=== PATIENT | male | born 1985 | race American Indian/Alaskan Native ===

== ENCOUNTER 2022-01-20 02:41 | Emergency (ER) | payer SELFPAY ==
[2022-01-20 02:50] VITALS: BP 110/70
--- NOTE | 2022-01-20 10:50 | Emergency Department Report ---
ED General Adult HPI - General Chief complaint: Neck Pain/Injury Stated complaint: MASS TO NECK Source: EMS Mode of arrival: Ambulatory Limitations: No Limitations - History of Present Illness Initial comments: 36-year-old male with no significant past medical history reports to the ER with left sided jaw mass. Patient reports mass has been there about 20 days and reports pain with swallowing, and a hard time eating food due to swelling. Patient unaware of how abscess to neck started. Patient denies fever, chills, dizziness. Reports no prior drainage to that particular area has had prior abscesses to jaw. No other acute symptoms reported. - Related Data Previous Rx's Medication Instructions Recorded Last Taken Type Ibuprofen [Motrin] 800 mg PO Q8HR PRN 7 Days #21 01/20/22 Unknown Rx tablet Sulfamethoxazole/Trimethoprim 1 each PO BID 10 Days #20 tab 01/20/22 Unknown Rx [Bactrim DS TAB] Allergies Allergy/AdvReac Type Severity Reaction Status Date / Time No Known Allergies Allergy Verified 01/20/22 10:55 ED Review of Systems ROS: Stated complaint: MASS TO NECK Other details as noted in HPI Constitutional: denies: chills, fever Eyes: denies: eye pain, eye discharge, vision change ENT: denies: ear pain, throat pain Respiratory: denies: cough, shortness of breath, wheezing Cardiovascular: denies: chest pain, palpitations Endocrine: no symptoms reported Gastrointestinal: denies: abdominal pain, nausea, diarrhea Genitourinary: denies: urgency, dysuria Musculoskeletal: denies: back pain, joint swelling, arthralgia Skin: other (Abscess to left jaw). denies: rash, lesions Neurological: denies: headache, weakness, paresthesias Psychiatric: denies: anxiety, depression Hematological/Lymphatic: denies: easy bleeding, easy bruising ED Past Medical Hx - Past Medical History Previous Medical History?: No - Surgical History Past Surgical History?: No - Social History Smoking Status: Unknown if ever smoked - Medications Home Medications: Home Medications Medication Instructions Recorded Confirmed Last Taken Type Ibuprofen [Motrin] 800 mg PO Q8HR PRN 7 Days #21 01/20/22 Unknown Rx tablet Sulfamethoxazole/Trimethoprim 1 each PO BID 10 Days #20 tab 01/20/22 Unknown Rx [Bactrim DS TAB] ED Physical Exam - General Limitations: No Limitations General appearance: alert, in no apparent distress - Head Head exam: Present: atraumatic, normocephalic - Eye Eye exam: Present: normal appearance - ENT ENT exam: Present: mucous membranes moist - Expanded ENT Exam Expanded Mouth exam: Present: other (Left-sided jaw abscess, thrush to the tongue) Teeth exam: Present: dental caries, other (Severe poor hygiene) - Neck Neck exam: Present: normal inspection - Respiratory Respiratory exam: Present: normal lung sounds bilaterally. Absent: respiratory distress - Cardiovascular Cardiovascular Exam: Present: regular rate, normal rhythm. Absent: systolic murmur, diastolic murmur, rubs, gallop - GI/Abdominal GI/Abdominal exam: Present: soft, normal bowel sounds - Rectal Rectal exam: Present: deferred - Extremities Exam Extremities exam: Present: normal inspection - Back Exam Back exam: Present: normal inspection - Neurological Exam Neurological exam: Present: alert, oriented X3 - Psychiatric Psychiatric exam: Present: normal affect, normal mood - Skin Skin exam: Present: warm, dry, intact, normal color. Absent: rash ED Course Vital Signs 01/20/22 01/20/22 02:46 16:08 Temperature 98.5 F Pulse Rate 88 88 Respiratory 18 18 Rate Blood Pressure 110/70 Blood Pressure 110/70 [Right] O2 Sat by Pulse 99 99 Oximetry - I & D Jaw Type of Procedure: Complex Site: Left side of jaw Blade Size: 11 I & D Procedure: betadine prep, sterile drapes applied, sterile dressing applied Progress: Abscess was drained to the left side of general using sterile technique. About 2 cc of lidocaine without epi was used. Drainage was successful. 1/4 iodoform was used to pack abscess. Patient tolerated procedure well. ED Medical Decision Making - Lab Data Result diagrams: 01/20/22 11:16 01/20/22 11:16 - Radiology Data [facility] [address] [place] [address] Cat Scan Report Signed Patient: PARTH LIZARRAGA MR#: [id number] : 1985 Acct:[id number] Age/Sex: 36 / M ADM Date: 01/20/22 Loc: ED Attending Dr: Ordering Physician: MARIAH AGUIRRE NP Date of Service: 01/20/22 Procedure(s): CT neck w con Accession Number(s): [id number] cc: MARIAH AGUIRRE NP CT NECK 01/20/2022 HISTORY: neck abscess. FINDINGS: Contrast enhanced CT images of the soft tissues of the neck were obtained. There is a subcutaneous mass/fluid collection in the left submandibular region. This appears to be located between the skin and platysma muscle, it from the floor of mouth. This irregular fluid attenuation structure measures 5.0 x 2.4 x 3.4 cm. There is surrounding inflammatory change, and the appearance is compatible with the provided history of abscess. There is some associated reactive adenopathy in the submandibular and jugulodigastric regions bilaterally. The submandibular glands are unremarkable. Parotid glands are unremarkable. IMPRESSION: Prominent left submandibular subcutaneous fluid collection with irregular margins. The appearance is consistent with abscess, associated with reactive adenopathy. All CT scans at this location are performed using dose reduction to ALARA by means of automated exposure control. Signer Name: Chato Johnson MD Signed: 01/20/2022 1:25 PM Workstation Name: [id number] Transcribed By: FELICITY Dictated By: Chato Johnson MD Electronically Authenticated By: Chato Johnson MD Signed Date/Time: 01/20/221324 DD/ 21 TD/TT: - Medical Decision Making 36-year-old male with no significant past medical history reports to the ER with left-sided jaw abscess, that is been present for about 20 days. Abscess noted to left side of jaw, severe poor hygiene to mouth, thrush like appearance to tongue. Will collect labsBMP, CBC, ImagingCT soft neck. IV Rocephin 1 g ordered, morphine, a liter of fluids. Once CT and labs are back we will evaluate imaging to decide if I&D is necessary versus consult with ENT. CT positive for abscess to the left jaw. WBC11.4 no other acute process noted in CBC. CMPnegative with no acute process noted. I&D performed and successful. Patient to be sent home with oral antibiotics and pain medicine. Patient informed to follow-up in the ER within 1 to 2 days for reevaluation of abscess and removal of packing. Patient agrees with plan of care and verbalized understanding. Vital Signs 01/20/22 01/20/22 02:46 16:08 Temperature 98.5 F Pulse Rate 88 88 Respiratory 18 18 Rate Blood Pressure 110/70 Blood Pressure 110/70 [Right] O2 Sat by Pulse 99 99 Oximetry Labs 01/20/22 01/20/22 11:16 11:16 WBC 11.4 H RBC 4.41 Hgb 14.0 Hct 42.5 MCV 96 H MCH 32 MCHC 33 RDW 13.8 Plt Count 246 Lymph % (Auto) 12.8 L Archer % (Auto) 10.3 H Eos % (Auto) 1.5 Baso % (Auto) 0.5 Lymph # (Auto) 1.5 Archer # (Auto) 1.2 H Eos # (Auto) 0.2 Baso # (Auto) 0.1 Seg Neutrophils % 74.9 H Seg Neutrophils # 8.6 H Sodium 137 Potassium 4.0 Chloride 97.3 L Carbon Dioxide 23 Anion Gap 21 BUN 4 L Creatinine 0.6 L Estimated GFR > 60 BUN/Creatinine Ratio 7 Glucose 90 Calcium 9.7 Critical care attestation.: If time is entered above; I have spent that time in minutes in the direct care of this critically ill patient, excluding procedure time. ED Disposition Clinical Impression: Abscess of jaw, left Disposition: 01 HOME / SELF CARE / HOMELESS Is pt being admited?: No Does the pt Need Aspirin: No Condition: Stable Instructions: Skin Abscess, Incision and Drainage, Care After Additional Instructions: If swelling gets worse new onset of fever, unable to eat drink or swallow please report back to the ER for further evaluation. Please take all antibiotics as directed for total 10 days. Please follow back up in the ER in 1 to 2 days for evaluation of wound and to have packing removed. Prescriptions: Sulfamethoxazole/Trimethoprim [Bactrim DS TAB] 1 each PO BID 10 Days #20 tab Ibuprofen [Motrin] 800 mg PO Q8HR PRN 7 Days #21 tablet PRN Reason: Pain, Moderate (4-6) Referrals: DEANNA JACK MD [Primary Care Provider] - 3-5 Days Time of Disposition: 15:28
[2022-01-20] MEDS ORDERED: MORPHINE 4 MG/1 ML INJ IV SCH (11:00)
[2022-01-20] MEDS ORDERED: SODIUM CHLORIDE 0.9% 1000 ML 1,000 ML IV ONE (11:30)
[2022-01-20 12:04] LABS: Basophils # (Auto) 0.1 K/mm3 (0.0-0.1); Basophils % (Auto) 0.5 % (0.0-1.8); Eosinophils # (Auto) 0.2 K/mm3 (0.0-0.4); Eosinophils % (Auto) 1.5 % (0.0-4.3); Hematocrit 42.5 % (35.5-45.6); Lymphocytes # (Auto) 1.5 K/mm3 (1.2-5.4); Lymphocytes % (Auto) 12.8 % (13.4-35.0); Mean Corpuscular HGB Conc 33 % (32-34); Mean Corpuscular Volume 96 fl (84-94); Monocytes # (Auto) 1.2 K/mm3 (0.0-0.8); Monocytes % (Auto) 10.3 % (0.0-7.3); Platelet Count 246 K/mm3 (140-440); Red Blood Count 4.41 M/mm3 (3.65-5.03); Red Cell Distribution Width 13.8 % (13.2-15.2)
[2022-01-20 12:09] LABS: Blood Urea Nitrogen 4 mg/dL (9-20); Calcium 9.7 mg/dL (8.4-10.2); Hemolysis Index 6
[2022-01-20] MEDS ORDERED: cefTRIAXone/NS 1 GM/50 ML 1 GM/50 ML BAG IV ONE (12:19)
[2022-01-20 12:23] LABS: BUN/Creatinine Ratio 7
--- NOTE | 2022-01-20 13:30 | Cat Scan Report ---
CT NECK 01/20/2022 HISTORY: neck abscess. FINDINGS: Contrast enhanced CT images of the soft tissues of the neck were obtained. There is a subcutaneous mass/fluid collection in the left submandibular region. This appears to be lo cated between the skin and platysma muscle, it from the floor of mouth. This irregular flu id attenuation structure measures 5.0 x 2.4 x 3.4 cm. There is surrounding inflammatory change, and t he appearance is compatible with the provided history of abscess. There is some associated reactive adenopathy in the submandibular and jugulodigastric regions bilater ally. The submandibular glands are unremarkable. Parotid glands are unremarkable. IMPRESSION: Prominent left submandibular subcutaneous fluid collection with irregular margins. The ap pearance is consistent with abscess, associated with reactive adenopathy. All CT scans at this location are performed using dose reduction to ALARA by means of automated expos ure control. Signer Name: Chato Johnson MD Signed: 01/20/2022 1:25 PM Workstation Name: [id number]
[2022-01-20] MEDS ORDERED: LIDOCAINE 1%/EPINEPHRINE 1:100,000 VIAL (20 ML) INFILTRATI ONE (13:39)
[2022-01-20] MEDS ORDERED: LIDOCAINE (1%) 10 MG/1 ML VIAL 20 ML MDV INFILTRATI ONE (14:27)
[2022-01-20] MEDS ORDERED: HYDROcodone/ACETAMINOPHEN 5-325 MG TAB PO ONE (15:28)
== END 2022-01-20 16:08 | disposition home or self-care (01) ==
LOC: ED 02:41
DX: M27.2 Inflammatory conditions of jaws (principal)
CPT/HCPCS: 36415; 41800; 70491; 80048; 85025; 96361; 96365; 96375; 99284; J0696; J2270; J7030; Q9967

== ENCOUNTER 2022-01-21 10:01 | Emergency (ER) | payer SELFPAY ==
--- NOTE | 2022-01-21 10:50 | Emergency Department Report ---
ED Recheck HPI - General Stated Complaint: FOLLOW UP/REMOVE PACKING FORM NECK Time Seen by Provider: 01/21/22 10:49 Source: patient Mode of arrival: Ambulatory Limitations: No Limitations - History of Present Illness Initial Comments: 36 YO HERE YESTERDAY FOR ABSCESS WHICH IS PACKED NOT READY FOR PAKCING REMOVAL Complaint: wound re-check Returns Today for: other Symptoms Since Prior Visit: no new symptoms Context: planned re-check Associated Symptoms: none - Related Data Previous Rx's Medication Instructions Recorded Last Taken Type Ibuprofen [Motrin] 800 mg PO Q8HR PRN 7 Days #21 01/20/22 Unknown Rx tablet Sulfamethoxazole/Trimethoprim 1 each PO BID 10 Days #20 tab 01/20/22 Unknown Rx [Bactrim DS TAB] Allergies Allergy/AdvReac Type Severity Reaction Status Date / Time No Known Allergies Allergy Verified 01/20/22 10:55 ED Review of Systems ROS: Stated complaint: FOLLOW UP/REMOVE PACKING FORM NECK Other details as noted in HPI Comment: All other systems reviewed and negative ED Past Medical Hx - Past Medical History Previous Medical History?: No - Surgical History Past Surgical History?: No - Family History Family history: no significant - Social History Smoking Status: Unknown if ever smoked - Medications Home Medications: Home Medications Medication Instructions Recorded Confirmed Last Taken Type Ibuprofen [Motrin] 800 mg PO Q8HR PRN 7 Days #21 01/20/22 Unknown Rx tablet Sulfamethoxazole/Trimethoprim 1 each PO BID 10 Days #20 tab 01/20/22 Unknown Rx [Bactrim DS TAB] ED Physical Exam - General General appearance: alert, in no apparent distress - Head Head exam: Present: atraumatic, normocephalic - Eye Eye exam: Present: normal appearance - ENT ENT exam: Present: mucous membranes moist - Neck Neck exam: Present: normal inspection - Respiratory Respiratory exam: Present: normal lung sounds bilaterally. Absent: respiratory distress - Cardiovascular Cardiovascular Exam: Present: regular rate, normal rhythm. Absent: systolic murmur, diastolic murmur, rubs, gallop - GI/Abdominal GI/Abdominal exam: Present: soft, normal bowel sounds - Rectal Rectal exam: Present: deferred - Extremities Exam Extremities exam: Present: normal inspection - Back Exam Back exam: Present: normal inspection - Neurological Exam Neurological exam: Present: alert, oriented X3 - Psychiatric Psychiatric exam: Present: normal affect, normal mood - Skin Skin exam: Present: warm, dry, intact, normal color, other (ABSCESS NECK WITH PACKING IN PLACE). Absent: rash ED Course Vital Signs 01/21/22 10:53 Temperature 97.6 F Pulse Rate 95 H Respiratory 16 Rate Blood Pressure 107/76 [Left] O2 Sat by Pulse 100 Oximetry ED Recheck MDM - Core Measures Measure Exclusions: not indicated - Differential Diagnosis Wound Recheck - Medical Decision Making NO NEW SYMPTOMS PACKING IN PLACE RN CHANGED DRESSING PT TO LEAVE PACKING IN AND FOLLOW UP MONDAY FOR PACKING REMOVAL HE VERBALIZES UNDERSTANDING OF PLAN OF CARE Vital Signs 01/21/22 10:53 Temperature 97.6 F Pulse Rate 95 H Respiratory 16 Rate Blood Pressure 107/76 [Left] O2 Sat by Pulse 100 Oximetry Critical care attestation.: If time is entered above; I have spent that time in minutes in the direct care of this critically ill patient, excluding procedure time. ED Disposition Clinical Impression: Abscess of jaw, left Disposition: HOME / SELF CARE / HOMELESS Is pt being admited?: No Does the pt Need Aspirin: No Condition: Stable Additional Instructions: keep taking meds follow up in ER Monday keep wound covered Referrals: DEANNA JACK MD [Staff Physician] - 3-5 Days Time of Disposition: 10:50
[2022-01-21 10:55] VITALS: BP 107/76
== END 2022-01-21 12:00 | disposition home or self-care (01) ==
LOC: ED 10:01
DX: M27.2 Inflammatory conditions of jaws (principal)
CPT/HCPCS: 99282

== ENCOUNTER 2022-01-23 17:14 | Emergency (ER) | payer SELFPAY ==
--- NOTE | 2022-01-23 23:26 | Emergency Department Report ---
- General Chief Complaint: Laceration/Recheck/Suture Stated Complaint: PACK REMOVAL Source: patient Mode of arrival: Ambulatory Limitations: No Limitations - History of Present Illness Initial Comments: Patient is a 36-year-old -[place] male with no past medical history presents to the ED for wound check following I&D procedure performed on anterior cervical area following cutaneous abscess about 3 days ago. Patient states that he is currently taking antibiotics previously prescribed with pain medication. Patient states that he was initially evaluated in this facility and advised to return to the ED for wound recheck and packing removal. Patient denies fever, chills, nausea and vomiting, chest pain or shortness of breath, dizziness, syncope, headache, dysphagia or dysphonia. -: days(s) (3) Location: neck (anterior) Place: home Patient Tetanus UTD: Yes Context: accidental, sharp object use (Shaving kapadia) Associated Symptoms: pain. denies: loss of feeling/numbness, suspect foreign body present, unable to move injured part, weakness followed by dizziness, nausea/vomiting, fever Treatments Prior to Arrival: bandage, NSAIDS - Related Data Previous Rx's Medication Instructions Recorded Last Taken Type Ibuprofen [Motrin] 800 mg PO Q8HR PRN 7 Days #21 01/20/22 Unknown Rx tablet Sulfamethoxazole/Trimethoprim 1 each PO BID 10 Days #20 tab 01/20/22 Unknown Rx [Bactrim DS TAB] Clindamycin [Clindamycin CAP] 300 mg PO Q8H #30 cap 01/23/22 Unknown Rx Allergies Allergy/AdvReac Type Severity Reaction Status Date / Time No Known Allergies Allergy Verified 01/20/22 10:55 ED Review of Systems ROS: Stated complaint: PACK REMOVAL Other details as noted in HPI Constitutional: denies: chills, fever Eyes: denies: eye pain, eye discharge, vision change ENT: denies: ear pain, throat pain Respiratory: denies: cough, shortness of breath, wheezing Cardiovascular: denies: chest pain, palpitations Endocrine: no symptoms reported Gastrointestinal: denies: abdominal pain, nausea, diarrhea Genitourinary: denies: urgency, dysuria Musculoskeletal: denies: back pain, joint swelling, arthralgia Skin: rash (Healing open wound on anterior cervical area following I&D procedure with packing.). denies: lesions, change in color, pruritus Neurological: denies: headache, weakness, paresthesias Psychiatric: denies: anxiety, depression Hematological/Lymphatic: denies: easy bleeding, easy bruising ED Past Medical Hx - Past Medical History Previous Medical History?: No - Surgical History Past Surgical History?: No - Social History Smoking Status: Never Smoker - Medications Home Medications: Home Medications Medication Instructions Recorded Confirmed Last Taken Type Ibuprofen [Motrin] 800 mg PO Q8HR PRN 7 Days #21 01/20/22 Unknown Rx tablet Sulfamethoxazole/Trimethoprim 1 each PO BID 10 Days #20 tab 01/20/22 Unknown Rx [Bactrim DS TAB] Clindamycin [Clindamycin CAP] 300 mg PO Q8H #30 cap 01/23/22 Unknown Rx ED Physical Exam - General Limitations: No Limitations General appearance: alert, in no apparent distress - Head Head exam: Present: atraumatic, normocephalic, normal inspection - Eye Eye exam: Present: normal appearance, PERRL, EOMI Pupils: Present: normal accommodation - ENT ENT exam: Present: normal exam, normal orophraynx, mucous membranes moist, TM's normal bilaterally, normal external ear exam - Neck Neck exam: Present: normal inspection, full ROM, other (Healing anterior cervical area wound following I&D procedure with packing in place.). Absent: tenderness - Respiratory Respiratory exam: Present: normal lung sounds bilaterally. Absent: respiratory distress, wheezes, rales, rhonchi, chest wall tenderness, accessory muscle use, decreased breath sounds, prolonged expiratory - Cardiovascular Cardiovascular Exam: Present: regular rate, normal rhythm, normal heart sounds. Absent: systolic murmur, diastolic murmur, rubs, gallop - GI/Abdominal GI/Abdominal exam: Present: soft, normal bowel sounds. Absent: tenderness, guarding, rebound, hyperactive bowel sounds, hypoactive bowel sounds, mass - Extremities Exam Extremities exam: Present: normal inspection, full ROM, normal capillary refill. Absent: tenderness, pedal edema, joint swelling, calf tenderness - Back Exam Back exam: Present: normal inspection, full ROM. Absent: tenderness, CVA tenderness (R), CVA tenderness (L), muscle spasm, paraspinal tenderness, vertebral tenderness - Neurological Exam Neurological exam: Present: alert, oriented X3, CN II-XII intact, normal gait, reflexes normal - Psychiatric Psychiatric exam: Present: normal affect, normal mood - Skin Skin exam: Present: warm, dry, intact, normal color, rash (Open wound with packing in place following I&D procedure on anterior cervical area cutaneous abscess) ED Course Vital Signs 01/23/22 17:38 Temperature 98.2 F Pulse Rate 90 Respiratory 18 Rate Blood Pressure 127/87 O2 Sat by Pulse 98 Oximetry ED Medical Decision Making - Medical Decision Making This is a 36-year-old -[place] male with no past medical history presents to the ED for wound check following I&D procedure performed on anterior cervical area following cutaneous abscess about 3 days ago. Patient states that he is currently taking antibiotics previously prescribed with pain medication. Patient states that he was initially evaluated in this facility and advised to return to the ED for wound recheck and packing removal. In the ED, patient is alert and oriented x3 and is not in any distress. Patient is hemodynamically stable. Anterior cervical wound was cleaned and packing removed and was extensively debrided with normal saline. The wound was then dressed appropriately and the patient was discharged home and advised to continue taking the previously prescribed antibiotics. Patient was advised to return to the ED immediately if symptoms get worse. Patient is otherwise advised to follow-up with his primary care physician in 7 to 10 days for reevaluation - Differential Diagnosis Cutaneous abscess; folliculitis; cellulitis; packing removal Critical care attestation.: If time is entered above; I have spent that time in minutes in the direct care of this critically ill patient, excluding procedure time. ED Disposition Clinical Impression: Cutaneous abscess of neck, Abscess packing removal, Folliculitis barbae Disposition: 01 HOME / SELF CARE / HOMELESS Is pt being admited?: No Does the pt Need Aspirin: No Condition: Stable Instructions: Skin Abscess, [id number], Wound Closure Removal, Care After, How to Change Your Wound Dressing, [id number], Incision Care, Adult, [id number] Additional Instructions: Continue taking the previously prescribed antibiotics. Take medication for pain as needed with food, follow-up with your primary care physician in 7 to 10 days for reevaluation. Return to the ED immediately if symptoms get worse for Prescriptions: Clindamycin [Clindamycin CAP] 300 mg PO Q8H #30 cap Referrals: [facility] [Provider Group] - 7-10 days Time of Disposition: 23:31 Print Language: CANADIAN
[2022-01-23 23:42] VITALS: BP 132/89
== END 2022-01-24 00:30 | disposition home or self-care (01) ==
LOC: ED 17:14
DX: L02.91 Cutaneous abscess, unspecified (principal); L02.11 Cutaneous abscess of neck; L73.9 Follicular disorder, unspecified; Z48.02 Encounter for removal of sutures
CPT/HCPCS: 99282